=== PATIENT | male | born 1980 | race Two or more races ===

== ENCOUNTER 2020-08-05 02:16 | Emergency (ER) | payer MEDICARE, MEDICAID ==
[~2020-08-05] VITALS: Ht 165.1 cm; Wt 59.0 kg
[2020-08-05] MEDS ORDERED: ZIPRASIDONE MESYLATE 20MG/VIAL IM ONE ×2 (03:30→14:15)
[2020-08-05 05:11] LABS: BASOPHILS % 0.3 % (0.0-2.0); EOSINOPHILS % 2.1 % (0.0-5.0); HEMATOCRIT. 36.4 % (42.0-52.0); LYMPHOCYTES % 23.3 % (20.0-50.0); MEAN CORPUSCULAR HEMOGLOBIN 30.7 pg (28.0-32.0); MEAN CORPUSCULAR VOLUME 92.9 fL (80.0-94.0); MEAN PLATELET VOLUME 6.9 fl (7.4-10.4); MONOCYTES % 5.6 % (2.0-8.0); NEUTROPHILS % 68.7 % (40.0-76.0); PLATELET 440 x1000/uL (130-400); RED BLOOD CELL COUNT 3.92 mill/uL (4.7-6.1); RED CELL DISTRIBUTION WIDTH 14.4 % (11.6-14.6)
[2020-08-05 05:18] LABS: CHLORIDE 111 mEq/L (98-107)
[2020-08-05 05:22] LABS: ETHANOL BLOOD < 10 mg/dL
[2020-08-05 09:03] LABS: *BARBITURATES SCREEN URINE NEGATIVE (NEGATIVE); METHADONE URINE SCREEN NEGATIVE (NEGATIVE); OPIATES URINE SCREEN NEGATIVE (NEGATIVE)
[2020-08-05 09:04] LABS: *AMPHETAMINES SCREEN URINE NEGATIVE (NEGATIVE); *BENZODIAZEPINES SCREEN URINE NEGATIVE (NEGATIVE); *COCAINE SCREEN URINE NEGATIVE (NEGATIVE); CANNABINOID URINE SCREEN NEGATIVE (NEGATIVE)
[2020-08-05 09:05] LABS: PHENCYCLIDINE URINE SCREEN NEGATIVE (NEGATIVE)
[2020-08-05] MEDS: QUETIAPINE FUMARATE 50MG TABLET PO SCH (20:51)
[2020-08-06] MEDS ORDERED: ZIPRASIDONE MESYLATE 20MG/VIAL IM ONE ×2 (02:00→19:30)
[2020-08-06] MEDS ORDERED: ONDANSETRON 4MG ODT PO SCH (08:30)
[2020-08-06] MEDS ORDERED: LORAZEPAM 2MG/ML CPJ IM ONE (19:30)
[2020-08-07] MEDS: QUETIAPINE FUMARATE 50MG TABLET PO SCH ×2 (09:00→09:27)
[2020-08-07 09:31] VITALS: BP 128/87
== END 2020-08-07 09:34 | disposition home or self-care (01) ==
LOC: ER 02:16
DX: R45.851 Suicidal ideations (principal); R45.1 Restlessness and agitation; R44.0 Auditory hallucinations; E11.9 Type 2 diabetes mellitus without complications; F32.9 Major depressive disorder, single episode, unspecified; I49.8 Other specified cardiac arrhythmias; Z20.822 Contact with and (suspected) exposure to COVID-19
CPT/HCPCS: 36415; 80053; 80305; 80307; 80320; 80329; 85025; 87426; 93005; 96372; 99285; J2060; J3486; Q0162; G0480